=== PATIENT | male | born 1965 | race Caucasian/White ===

== ENCOUNTER → 2016-04-13 | Outpatient (CLI) | payer OTHER ==
[~2016-04-13] MED LIST: ACET-1311 PO; ASPI81TA57 PO; CHOL100010 PO; LISI-787 PO; METH500T37 PO; OMEG10007 PO; OXYC1TAB3 PO; PREG100C PO
[2016-04-13 12:13] LABS: HEMATOCRIT 48.6 % (42-52); MEAN CELL VOLUME 91.7 fL (80-100); MEAN CORPUSCULAR HEMOGLOBIN 32.6 pg (25-34); MEAN CORPUSCULAR HGB CONC 35.6 g/dl (32-36); MEAN PLATELET VOLUME 10.3 fL (7.4-10.4); PLATELET COUNT 253 K/uL (130-400); WHITE BLOOD COUNT 6.73 K/uL (4.8-10.8)
--- NOTE | 2016-04-13 12:26 | DIAGNOSTIC IMAGING REPORT ---
C-SPINE ROUTINE 4 OR 5 VIEWS CLINICAL HISTORY: Neck pain COMPARISON STUDY: No previous studies for comparison. FINDINGS: The prevertebral soft tissues are normal. There are multilevel degenerative changes. No acute fractures or traumatic subluxations are visualized. There is mild foraminal narrowing most pronounced at the C6-7 level on the left. No destructive lesions are visualized. IMPRESSION: Multilevel degenerative change. No fractures subluxations or destructive lesions are visualized Electronically signed by: Waldemar Garcia M.D. 04/13/2016 12:24 PM
--- NOTE | 2016-04-13 12:27 | DIAGNOSTIC IMAGING REPORT ---
THORACIC SPINE 3 VIEWS HISTORY: Pain M54.2 COMPARISON: None. FINDINGS: There is no fracture. No subluxation. Moderate to rather significant degenerative disc change throughout the entire thoracic region. Mild sclerosis of the vertebral endplates. Minimal lateral osteophytic reaction throughout. Old healed fractures of the mid clavicular shaft bilaterally. IMPRESSION: Significant degenerative change. No acute process. Electronically signed by: Gilmar Davidson M.D. 04/13/2016 12:24 PM
== END | disposition home or self-care (01) ==
LOC: C.RAD 11:22
PROVIDERS: ATTEND Family Medicine
DX: M54.2 Cervicalgia (principal)